=== PATIENT | female | born 1950 | race Caucasian/White ===

== ENCOUNTER 2019-07-23 13:05 | Inpatient (IN) ==
[2019-07-23] MEDS ORDERED: NS 1000 ML 1,000 ML ONE ×2 (13:34→15:27)
[2019-07-23] MEDS ORDERED: NS 1000 ML 1,000 ML IV ONE ×2 (13:47→15:27)
[2019-07-23] MEDS ORDERED: ZOFRAN INJ 4 MG VIAL IVP ONE ×2 (13:56→18:30)
--- NOTE | 2019-07-23 13:56 | DR.NAUSEAF ---
HPI Time Seen Time Seen by Provider: 07/23/19 13:56 HPI Comment HPI Comment: PATIENT IS 69YR OLD FEMALE IN ER WITH NAUSEA, VOMITING AND DIARRHEA NOTED THIS AM WHEN PATIENT WENT TO WORK. SHE IS WEAK AND HAVE NEAR SYNCOPAL FEELING. BP IS LOW IN ER. NO FEVER OR DYSURIA. DENIES BEING IN CONTACT WITH [facility] WITH SIMILAR SYMPTOMS. DENIES RECENT TRAVEL. PATIENT HAVING 7/10 NON RADIATING DIFFUSE ABDOMINAL CRAMPING. Complaints Chief Complaint Doctors Comments: GENERALIZED WEAKNESS, NAUSEA, VOMITING, DIARRHEA NOTED THIS AM.AND FEEL SHE Chief Complaint:: PT C/O BEING AT WORK THIS AM AND C/O N/V AND FEELING WEAK ,BR Reviewed Nurses Notes Reviewed: Yes Source History Provided: Patient and Family Member Mode of Arrival Mode of Arrival: Ambulatory Timing Onset of Chief Complaint: 07/23/19 Context Onset: Spontaneous Recent: None History of: Abdominal Operation (APPENDECTOMY.) Quality Quality: Food Particles Associated Signs and Symptoms Abdominal Pain Quality: Cramping Abdominal Pain Location: Diffuse Symptoms: Abdominal Pain and Diarrhea PMH PMH Past Medical History: Yes Past Medical History: Depression Past Surgical History: No Surgical History: Appendectomy and Tonsillectomy Family History History of Family Medical Conditions: No Social History Does patient currently use any type of tobacco product: No Have you used tobacco products in the last 12 months: No Type of Tobacco Use: None Does any household member use tobacco: No Alcohol Use: None Do you use any recreational Drugs:: No Lives With: Family Lives Where: Home Travel Risk Coronavirus risk:travel/contact w/high risk person: No Has patient experienced Coronavirus symptoms: No Infectious screening In the last 2 months have you had wt loss of >10#?: NO Have you had fever, night sweats or hemotysis?: No Have you traveled outside the country in the last 6 months?: No Isolation: Standard ROS Review of Systems Constitutional: See HPI, Weakness and Fatigue; negative Fever Eyes: No Symptoms Reported and See HPI; negative Blurred Vision and Diplopia ENTM: No Symptoms Reported and See HPI; negative Ear Pain, Nose Congestion and Throat Pain Respiratoy: No Symptoms Reported and See HPI; negative Productive Cough, Moist Cough, Short of Breath and Wheezing Cardiovascular: No Symptoms Reported and See HPI; negative Chest Pain and Edema Gastrointestinal/Abdominal: Abdominal Pain, Diarrhea, Nausea and Vomiting Genitourinary: No Symptoms Reported and See HPI; negative Frequency Neurological: See HPI, Headache, Weakness and Dizziness Musculoskeletal: No Symptoms Reported, See HPI and Muscle Pain; negative Back Pain Integumentary: No Symptoms Reported and See HPI; negative Change in Color, Rash and Juandice Hematologic/Lymphatic: No Symptoms Reported and See HPI; negative Easy Bruising and Swollen Glands Endocrine: See HPI and Increased Thirst; negative Increased Urine Psychiatric: No Symptoms Reported and See HPI All Other Systems: Reviewed and Negative PE Vital Signs Vitals: Temperature 97.2 F Pulse Rate 98 Respiratory Rate 18 Blood Pressure 96/55 O2 Sat by Pulse Oximetry 91 General Limitations: No Limitations General Appearance: Alert and In No Apparent Distress Head Head Exam: Normal Inspection and Atraumatic Eyes Eye exam: Normal Appearance and PERRL; negative Scleral Icterus and Conjunctival Injection ENT ENT Exam: Normal Exam Neck Neck Exam: Normal Inspection and Trachea Midline; negative Tenderness and Lymphadenopathy Chest Chest Inspection: Normal Inspection and Symmetric Chest Wall Rise; negative Tenderness Respiratory Respiratory Exam: Normal Lung Sounds Bilat; negative Accessory Muscle Use, Chest Wall Tenderness and Respiratory Distress Respiratory Exam: Bilateral: Rhonchi and Lower: Rhonchi Cardiovascular Cardiovascular Exam: Regular Rate, Normal Rhythm and Normal Heart Sounds; neg ative Systolic Murmur and Diastolic Murmur Abdominal Exam Abdominal Exam: Normal Bowel Sounds, Soft and Tenderness Abdominal Tenderness: Diffuse and Moderate Rectal Rectal Exam: Deferred External Exam: Female: Deferred : Speculum Exam (Female): Deferred : Bimanual Exam (female): Deferred Extremities Extremities Exam: Normal Inspection and Normal Capillary Refill; negative Tenderness, Edema and Calf Tenderness Back Back Exam: Normal Inspection; negative (R) CVA Tenderness and (L) CVA Tenderness Neurologic Neurological Exam: Alert, Oriented X3 and CN II-XII Intact; negative Motor Sensory Deficit Psychiatric Psychiatric Exam: Normal Affect and Normal Mood Skin Skin Exam: Dry MDM Additional Information Obtained Additional Information Obtained From: Family Differential Diagnosis Differential Diagnosis: Considerations may Include:: Bowel Obstruction, Cholecystitis, Gastroenteritis, Pancreatitis, PUD, Urinary Tract Infection and Urolithiasis COURSE Treatment Treatment: SEE ORDERS. NS 1L IV BOLUS TIMES 2, NS 100CC/HR. CIPRO 200MG IVPB. DEMOROL 12.5MG IV AND ZOFRAN 4MG IV. Reevaluation 1st: Improved (BP STILL LOW. REPEAT NS 1L IV BOLUS.) 2nd: Improved Consultation Consultation Comments: DISCUSSED PATIENT WITH DR. COBOS. HE WILL ADMIT PATIENT. Education/Counseling Education/Counseling: Patient and Family Educated On: Diagnosis ROR Labs Reviewed Laboratory Results Reviewed?: Yes Result Diagrams: 07/23/19 13:40 07/23/19 13:40 Laboratory: 07/23/19 15:40 Stool - Final WBC 15.2 X10^3/uL (3.6-10.0) H 07/23/19 13:40 RBC 5.02 X10^6/uL (3.5-5.4) 07/23/19 13:40 Hgb 14.6 g/dL (12.0-16.0) 07/23/19 13:40 Hct 44.0 % (36.0-47.0) 07/23/19 13:40 MCV 87.5 fL (80.0-100.0) 07/23/19 13:40 MCH 29.0 pg (27.0-34.0) 07/23/19 13:40 MCHC 33.1 g/dL (33.0-35.0) 07/23/19 13:40 RDW 13.2 % (11.6-16.5) 07/23/19 13:40 Plt Count 329 X10^3/uL (150.0-450.0) 07/23/19 13:40 MPV 8.4 fL (7.4-11.0) 07/23/19 13:40 Neut % (Auto) 89.5 % (42.0-75.0) H 07/23/19 13:40 Lymph % (Auto) 5.1 % (21.0-51.0) L 07/23/19 13:40 [place] % (Auto) 4.7 % (0.0-13.0) 07/23/19 13:40 Eos % (Auto) 0.3 % (0.9-2.9) L 07/23/19 13:40 Baso % (Auto) 0.4 % (0.2-1.0) 07/23/19 13:40 Neut # (Auto) 13.6 x10^3/uL (2.2-4.8) H 07/23/19 13:40 Lymph # (Auto) 0.8 X10^3/uL (1.3-2.9) L 07/23/19 13:40 [place] # (Auto) 0.7 x10^3/uL (0.3-0.8) 07/23/19 13:40 Eos # (Auto) 0.0 x10^3/uL (0.0-0.2) 07/23/19 13:40 Baso # (Auto) 0.1 X10^3/uL (0.0-0.1) 07/23/19 13:40 Absolute Nucleated RBC 0.0 /100WBC 07/23/19 13:40 Sodium 142 mmol/L (136-145) 07/23/19 13:40 Corrected Sodium 143 mmol/L (136-145) 07/23/19 13:40 Potassium 4.6 mmol/L (3.5-5.1) 07/23/19 13:40 Chloride 106 mmol/L (98-107) 07/23/19 13:40 Carbon Dioxide 26.7 mmol/L (21-32) 07/23/19 13:40 BUN 33 mg/dL (7-18) H 07/23/19 13:40 Creatinine 1.86 mg/dL (0.55-1.02) H 07/23/19 13:40 Est GFR (MDRD) Af Amer 34 (>60) L 07/23/19 13:40 Est GFR (MDRD) Non-Af 28 (>60) L 07/23/19 13:40 Glucose 125 mg/dL (65-99) H 07/23/19 13:40 Calcium 9.9 mg/dL (8.5-10.1) 07/23/19 13:40 Corrected Calcium TNP 07/23/19 13:40 Total Bilirubin 0.50 mg/dL (0.2-1.0) 07/23/19 13:40 AST 30 Units/L (15-37) 07/23/19 13:40 ALT 27 Units/L (12-78) 07/23/19 13:40 Alkaline Phosphatase 94 Units/L (46-116) 07/23/19 13:40 Total Protein 8.3 g/dL (6.4-8.2) H 07/23/19 13:40 Albumin 3.9 g/dL (3.4-5.0) 07/23/19 13:40 Globulin 4.4 g/dL (2.5-4.5) 07/23/19 13:40 Albumin/Globulin Ratio 0.9 Ratio (1.1-2.1) L 07/23/19 13:40 Amylase 34 Units/L (25-115) 07/23/19 13:40 Lipase 149 Units/L (73-393) 07/23/19 13:40 Specimen Type Clean catch urine 07/23/19 16:06 Urine Color Yellow (YELLOW) 07/23/19 16:06 Urine Appearance Hazy (CLEAR) 07/23/19 16:06 Urine pH 5.0 (5.0 - 8.0) 07/23/19 16:06 Ur Specific [place] 1.015 (1.000-1.030) 07/23/19 16:06 Urine Protein 1+ (NEGATIVE) 07/23/19 16:06 Urine Glucose (UA) Negative (NEGATIVE) 07/23/19 16:06 Urine Ketones Negative (NEGATIVE) 07/23/19 16:06 Urine Occult Blood 1+ (NEGATIVE) 07/23/19 16:06 Urine Nitrite Negative (NEGATIVE) 07/23/19 16:06 Urine Bilirubin Negative (NEGATIVE) 07/23/19 16:06 Urine Urobilinogen Normal (NORMAL) 07/23/19 16:06 Ur Leukocyte Esterase 2+ (NEGATIVE) 07/23/19 16:06 Urine RBC 3-5 /HPF (0-3) A 07/23/19 16:06 Urine WBC 3-5 /HPF (0-5) 07/23/19 16:06 Ur Squamous Epith Cells Few /HPF (NEGATIVE) 07/23/19 16:06 Urine Bacteria Trace /HPF (NEGATIVE) 07/23/19 16:06 Urine Mucus Few /HPF (NEGATIVE) 07/23/19 16:06 Ur Culture Indicated? No/not indicated 07/23/19 16:06 Stool Description 10g mucoid 07/23/19 15:40 Stool Description 10g mucoid 07/23/19 15:40 Stl Occult Blood (IFOB) Positive (NEGATIVE) A 07/23/19 15:40 Stool for White Cells Positive (NEGATIVE) A 07/23/19 15:40 Stl C. diff Tox B Gene Negative (NEGATIVE) 07/23/19 15:40 Stl C. diff 027-NAP1-BI Negative (NEGATIVE) 07/23/19 15:40 Stool H. pylori Ag Positive (NEGATIVE) A 07/23/19 15:40 Cryptosporid parvum Ag Negative (NEGATIVE) 07/23/19 15:40 Giardia lamblia Ag Negative (NEGATIVE) 07/23/19 15:40 XRAY XRAY Interpreted by: Radiologist (REPORT NOTED AND DISCUSSED WITH PATIENT.) Opioid Opioid Risk Tool Age ([place] box if 16-45): No History of Preadolescent Sexual Abuse: No Total: 0 Total Score Risk Category: Low Risk Copyright: Domenico LLOYD predicting aberrant behaviors Diagnosis Discharge Problem: Generalized weakness, Gastroenteritis, Colitis, Campylobacter enteritis, H. pylori infection Hypotension Qualifiers: Hypotension type: unspecified hypotension type Qualified Code(s): I95.9 - Hypotension, unspecified Abdominal pain Qualifiers: Abdominal location: generalized Qualified Code(s): R10.84 - Generalized abdominal pain
[2019-07-23] MEDS ORDERED: ZOFRAN INJ 4 MG VIAL ONE ×2 (13:58→18:30)
[2019-07-23 14:09] LABS: BASOPHILS # (AUTO) 0.1 X10^3/uL (0.0-0.1); BASOPHILS % (AUTO) 0.4 % (0.2-1.0); EOSINOPHILS % (AUTO) 0.3 % (0.9-2.9); HEMOGLOBIN 14.6 g/dL (12.0-16.0); LYMPHOCYTES # (AUTO) 0.8 X10^3/uL (1.3-2.9); LYMPHOCYTES % (AUTO) 5.1 % (21.0-51.0); MEAN CORPUSCULAR HGB CONC 33.1 g/dL (33.0-35.0); MEAN CORPUSCULAR VOLUME 87.5 fL (80.0-100.0); MEAN PLATELET VOLUME 8.4 fL (7.4-11.0); MONOCYTES # (AUTO) 0.7 x10^3/uL (0.3-0.8); MONOCYTES % (AUTO) 4.7 % (0.0-13.0); NEUTROPHILS # (AUTO) 13.6 x10^3/uL (2.2-4.8); NEUTROPHILS % (AUTO) 89.5 % (42.0-75.0); PLATELET COUNT 329 X10^3/uL (150.0-450.0); RED BLOOD COUNT 5.02 X10^6/uL (3.5-5.4); RED CELL DISTRIBUTION WIDTH 13.2 % (11.6-16.5); WHITE BLOOD COUNT 15.2 X10^3/uL (3.6-10.0)
[2019-07-23 14:18] LABS: ALANINE AMINOTRANSFERASE 27 Units/L (12-78); ALBUMIN 3.9 g/dL (3.4-5.0); ALKALINE PHOSPHATASE 94 Units/L (46-116); AMYLASE 34 Units/L (25-115); ASPARTATE AMINO TRANSFERASE 30 Units/L (15-37); BLOOD UREA NITROGEN 33 mg/dL (7-18); CALCIUM 9.9 mg/dL (8.5-10.1); CARBON DIOXIDE 26.7 mmol/L (21-32); CHLORIDE 106 mmol/L (98-107); COR NA(FOR HYPERGLY) 143 mmol/L (136-145); CREATININE 1.86 mg/dL (0.55-1.02); LIPASE 149 Units/L (73-393); SODIUM 142 mmol/L (136-145); TOTAL PROTEIN 8.3 g/dL (6.4-8.2); eGFR NON BLACK RACES 28 (>60)
[2019-07-23] MEDS ORDERED: TYLENOL 325 MG TAB PO ONE ×2 (16:12)
[2019-07-23 16:33] LABS: BILIRUBIN,URINE NEGATIVE (NEGATIVE); BLOOD/HEMOGLOBIN,URINE 1+ (NEGATIVE); GLUCOSE, URINE NEGATIVE (NEGATIVE); KETONES,URINE NEGATIVE (NEGATIVE); LEUKOCYTE ESTERASE ,URINE 2+ (NEGATIVE); NITRITES,URINE NEGATIVE (NEGATIVE); PROTEIN,URINE 1+ (NEGATIVE); UROBILINOGEN,URINE NORMAL (NORMAL)
[2019-07-23 16:39] LABS: APPEARANCE,URINE HAZY (CLEAR); BACTERIA,URINE TRACE /HPF (NEGATIVE); COLOR,URINE YELLOW (YELLOW); SQUAMOUS EPITHELIAL CELL,UR FEW /HPF (NEGATIVE)
[2019-07-23 16:40] LABS: MUCUS,URINE FEW /HPF (NEGATIVE)
[2019-07-23 17:15] LABS: CRYPTOSPORIDIUM PARVUM ANTIGEN NEGATIVE (NEGATIVE); GIARDIA LAMBLIA ANTIGEN NEGATIVE (NEGATIVE)
[2019-07-23] MEDS ORDERED: DEMEROL INJ IVP ONE (18:29)
[2019-07-23] MEDS ORDERED: DEMEROL INJ ONE (18:31)
--- NOTE | 2019-07-23 18:46 | CT ---
HISTORYABD PAIN, N/V/DSTUDYABDOMEN/PELVIS W/O CONCOMPARISONNoneTECHNIQUEMultiple axial images of the abdomen and pelvis were obtained from the lung bases to the pubic symphysis without the administration of IV contrast. Dose reduction techniques including Automated Exposure Control (AEC) and adjustment of mA and kV were utilized.FINDINGSSubsegmental atelectasis and/or scarring are seen within the visualized lungs. Partially visualized bilateral breast implants are noted. The liver, spleen, pancreas, adrenals, and kidneys are grossly unremarkable in appearance given the limitations of this noncontrast exam. No CT evidence of hydronephrosis is identified. The appendix is not well defined. No significant inflammatory changes are appreciated within the right lower quadrant. Evaluation of the stomach, small bowel, and colon is limited without oral contrast. A small hiatal hernia is noted. The urinary bladder is grossly unremarkable. Degenerative changes are seen within the visualized spine.IMPRESSIONNo definite CT evidence of acute disease within the abdomen pelvis is appreciated.Electronically signed by: GEM MACIAS (Jul 23, 2019 18:44:27)
[2019-07-23] MEDS ORDERED: CIPRO IV 400 MG PREMIX* 400 MG/200 ML IV.SOLN. IV ONE ×2 (18:53→18:54)
[2019-07-23] MEDS ORDERED: PEPCID 20 MG IV PREMIX* 20 MG/50 ML BAG IV PRN (19:37)
[2019-07-23] MEDS ORDERED: ATARAX TAB 25 MG PO PRN (19:37)
[2019-07-23] MEDS: CIPRO IV 200 MG PREMIX* 200 MG/100 ML BAG IV SCH (20:19)
[2019-07-23] MEDS ORDERED: LEXAPRO ONE (20:31)
[2019-07-23] MEDS: NS 1000 ML 1,000 ML IV SCH (20:44)
[2019-07-23] MEDS: FLAGYL IV PREMIX 500 MG BAG 500 MG/100 ML BAG IV SCH (20:45)
[2019-07-23] MEDS: LEXAPRO PO SCH (20:45)
[2019-07-23] MEDS: REQUIP PO SCH (20:45)
[2019-07-23] MEDS: ZOFRAN INJ 4 MG VIAL IVP PRN (21:14)
[2019-07-23 21:37] VITALS: BMI 24.0
[2019-07-23] MEDS ORDERED: BUTT CREAM (COMPOUND) TOP PRN (21:53)
[2019-07-24] MEDS: DEMEROL INJ IVP PRN ×3 (00:11→17:20)
[2019-07-24] MEDS: FLAGYL IV PREMIX 500 MG BAG 500 MG/100 ML BAG IV SCH ×4 (02:10→20:57)
[2019-07-24 06:04] LABS: BASOPHILS % (AUTO) 0.1 % (0.2-1.0); EOSINOPHILS # (AUTO) 0.2 x10^3/uL (0.0-0.2); EOSINOPHILS % (AUTO) 2.7 % (0.9-2.9); HEMATOCRIT 34.9 % (36.0-47.0); HEMOGLOBIN 11.6 g/dL (12.0-16.0); LYMPHOCYTES % (AUTO) 15.6 % (21.0-51.0); MEAN CORPUSCULAR HEMOGLOBIN 29.3 pg (27.0-34.0); MEAN CORPUSCULAR HGB CONC 33.2 g/dL (33.0-35.0); MEAN CORPUSCULAR VOLUME 88.3 fL (80.0-100.0); MEAN PLATELET VOLUME 8.1 fL (7.4-11.0); MONOCYTES # (AUTO) 0.5 x10^3/uL (0.3-0.8); MONOCYTES % (AUTO) 8.3 % (0.0-13.0); NEUTROPHILS # (AUTO) 4.6 x10^3/uL (2.2-4.8); NEUTROPHILS % (AUTO) 73.3 % (42.0-75.0); PLATELET COUNT 242 X10^3/uL (150.0-450.0); RED BLOOD COUNT 3.96 X10^6/uL (3.5-5.4); RED CELL DISTRIBUTION WIDTH 13.7 % (11.6-16.5); WHITE BLOOD COUNT 6.2 X10^3/uL (3.6-10.0)
[2019-07-24] MEDS: SYNTHROID 75 mcg TAB PO SCH (06:08)
[2019-07-24 06:17] LABS: ALANINE AMINOTRANSFERASE 19 Units/L (12-78); ALBUMIN 2.7 g/dL (3.4-5.0); ALKALINE PHOSPHATASE 62 Units/L (46-116); AMYLASE 22 Units/L (25-115); ASPARTATE AMINO TRANSFERASE 18 Units/L (15-37); BLOOD UREA NITROGEN 27 mg/dL (7-18); CALCIUM 8.2 mg/dL (8.5-10.1); CARBON DIOXIDE 24.1 mmol/L (21-32); CHLORIDE 113 mmol/L (98-107); COR CA(FOR HYPOALB) 9.2 mg/dL (8.5-10.1); CREATININE 1.54 mg/dL (0.55-1.02); LIPASE 70 Units/L (73-393); SODIUM 144 mmol/L (136-145); TOTAL PROTEIN 6.1 g/dL (6.4-8.2); eGFR NON BLACK RACES 35 (>60)
[2019-07-24] MEDS: NS 1000 ML 1,000 ML IV SCH ×2 (06:26→17:19)
[2019-07-24] MEDS: PROTONIX INJ 40 MG VIAL IVP SCH ×2 (08:58→20:57)
[2019-07-24] MEDS: CIPRO IV 200 MG PREMIX* 200 MG/100 ML BAG IV SCH ×2 (08:59→22:00)
[2019-07-24] MEDS: PEPCID 20 MG IV PREMIX* 20 MG/50 ML BAG IV SCH (08:59)
[2019-07-24] MEDS ORDERED: LEVOTHYROXINE 75 MCG PO SCH (09:00)
[2019-07-24] MEDS ORDERED: PEPCID 20 MG IV PREMIX* 20 MG/50 ML BAG IV SCH (09:00)
[2019-07-24] MEDS: TYLENOL 325 MG TAB PO PRN (11:18)
[2019-07-24] MEDS ORDERED: LEXAPRO ONE (19:47)
[2019-07-24] MEDS: LEXAPRO PO SCH (20:57)
[2019-07-24] MEDS: REQUIP PO SCH (20:57)
[2019-07-24] MEDS: ZOFRAN INJ 4 MG VIAL IVP PRN (23:53)
[2019-07-25] MEDS: NS 1000 ML 1,000 ML IV SCH ×4 (01:39→21:26)
[2019-07-25] MEDS: FLAGYL IV PREMIX 500 MG BAG 500 MG/100 ML BAG IV SCH ×4 (03:39→20:40)
[2019-07-25 05:59] LABS: BASOPHILS % (AUTO) 0.4 % (0.2-1.0); EOSINOPHILS # (AUTO) 0.4 x10^3/uL (0.0-0.2); EOSINOPHILS % (AUTO) 4.8 % (0.9-2.9); HEMATOCRIT 33.6 % (36.0-47.0); HEMOGLOBIN 11.2 g/dL (12.0-16.0); LYMPHOCYTES % (AUTO) 11.7 % (21.0-51.0); MEAN CORPUSCULAR HEMOGLOBIN 29.4 pg (27.0-34.0); MEAN CORPUSCULAR HGB CONC 33.2 g/dL (33.0-35.0); MEAN CORPUSCULAR VOLUME 88.5 fL (80.0-100.0); MEAN PLATELET VOLUME 9.6 fL (7.4-11.0); MONOCYTES # (AUTO) 0.7 x10^3/uL (0.3-0.8); MONOCYTES % (AUTO) 8.8 % (0.0-13.0); NEUTROPHILS # (AUTO) 6.2 x10^3/uL (2.2-4.8); NEUTROPHILS % (AUTO) 74.3 % (42.0-75.0); PLATELET COUNT 205 X10^3/uL (150.0-450.0); RED CELL DISTRIBUTION WIDTH 13.2 % (11.6-16.5); WHITE BLOOD COUNT 8.3 X10^3/uL (3.6-10.0)
[2019-07-25 06:09] LABS: ALANINE AMINOTRANSFERASE 14 Units/L (12-78); ALBUMIN 2.6 g/dL (3.4-5.0); ALKALINE PHOSPHATASE 58 Units/L (46-116); ASPARTATE AMINO TRANSFERASE 16 Units/L (15-37); BLOOD UREA NITROGEN 15 mg/dL (7-18); CALCIUM 8.1 mg/dL (8.5-10.1); CARBON DIOXIDE 23.8 mmol/L (21-32); CHLORIDE 112 mmol/L (98-107); COR CA(FOR HYPOALB) 9.2 mg/dL (8.5-10.1); CREATININE 1.46 mg/dL (0.55-1.02); SODIUM 142 mmol/L (136-145); TOTAL PROTEIN 5.8 g/dL (6.4-8.2); eGFR NON BLACK RACES 38 (>60)
[2019-07-25 06:20] LABS: PLATELET MORPHOLOGY COMMENT NORMAL (NORMAL)
[2019-07-25] MEDS: SYNTHROID 75 mcg TAB PO SCH (07:48)
[2019-07-25] MEDS: PROTONIX INJ 40 MG VIAL IVP SCH ×2 (08:20→20:40)
[2019-07-25] MEDS: CIPRO IV 200 MG PREMIX* 200 MG/100 ML BAG IV SCH ×2 (08:35→20:40)
[2019-07-25] MEDS: PEPCID 20 MG IV PREMIX* 20 MG/50 ML BAG IV SCH (08:38)
[2019-07-25] MEDS: ZOFRAN INJ 4 MG VIAL IVP PRN ×2 (08:50→16:55)
[2019-07-25] MEDS ORDERED: LEXAPRO ONE (20:27)
[2019-07-25] MEDS: LEXAPRO PO SCH (20:40)
[2019-07-25] MEDS: REQUIP PO SCH (20:40)
[2019-07-26] MEDS: TYLENOL 325 MG TAB PO PRN ×2 (01:45→18:59)
[2019-07-26] MEDS: FLAGYL IV PREMIX 500 MG BAG 500 MG/100 ML BAG IV SCH ×4 (02:33→20:50)
[2019-07-26 06:05] LABS: BASOPHILS % (AUTO) 0.1 % (0.2-1.0); EOSINOPHILS # (AUTO) 0.4 x10^3/uL (0.0-0.2); EOSINOPHILS % (AUTO) 6.6 % (0.9-2.9); HEMATOCRIT 32.1 % (36.0-47.0); HEMOGLOBIN 10.9 g/dL (12.0-16.0); LYMPHOCYTES % (AUTO) 16.8 % (21.0-51.0); MEAN CORPUSCULAR VOLUME 88.1 fL (80.0-100.0); MEAN PLATELET VOLUME 8.5 fL (7.4-11.0); MONOCYTES # (AUTO) 0.7 x10^3/uL (0.3-0.8); MONOCYTES % (AUTO) 11.5 % (0.0-13.0); PLATELET COUNT 192 X10^3/uL (150.0-450.0); RED BLOOD COUNT 3.64 X10^6/uL (3.5-5.4); RED CELL DISTRIBUTION WIDTH 13.3 % (11.6-16.5); WHITE BLOOD COUNT 6.1 X10^3/uL (3.6-10.0)
[2019-07-26 06:19] LABS: ALANINE AMINOTRANSFERASE 17 Units/L (12-78); ALBUMIN 2.5 g/dL (3.4-5.0); ALKALINE PHOSPHATASE 63 Units/L (46-116); ASPARTATE AMINO TRANSFERASE 23 Units/L (15-37); BLOOD UREA NITROGEN 10 mg/dL (7-18); CARBON DIOXIDE 21.1 mmol/L (21-32); CHLORIDE 111 mmol/L (98-107); COR CA(FOR HYPOALB) 9.2 mg/dL (8.5-10.1); CREATININE 1.48 mg/dL (0.55-1.02); SODIUM 141 mmol/L (136-145); TOTAL PROTEIN 5.6 g/dL (6.4-8.2); eGFR NON BLACK RACES 37 (>60)
[2019-07-26] MEDS: SYNTHROID 75 mcg TAB PO SCH (07:50)
[2019-07-26] MEDS: PROTONIX INJ 40 MG VIAL IVP SCH ×2 (08:40→20:53)
[2019-07-26] MEDS: CIPRO IV 200 MG PREMIX* 200 MG/100 ML BAG IV SCH ×2 (08:50→20:49)
[2019-07-26] MEDS: NS 1000 ML 1,000 ML IV SCH ×3 (09:00→20:48)
[2019-07-26] MEDS: PEPCID 20 MG IV PREMIX* 20 MG/50 ML BAG IV SCH (09:02)
--- NOTE | 2019-07-26 10:15 | DR.H&P ---
H&P - History & Physical for Day of: H&P Date: 07/23/19 - Chief Complaint Chief Complaint: NAUSEA, VOMITING, DIARRHEA - History of Present Illness History of Present Illness: IS A 69 YEAR OLD PATIENT OF OURS WHO PRESENTED TO THE HOSPITAL WITH COMPLAINTS OF GENERALIZED WEAKNESS, NAUSEA, VOMITING, AND DIARRHEA. SYMPTOMS STARTED ON DAY PRIOR. SHE DENIES TRAVEL OR CONTACT WITH OTHERS WITH SIMILAR SYMPTOMS. ON ARRIVAL TO THE HOSPITAL, VITALS WERE 97.2-124-20-95%-116/58. LABS WERE OBTAINED. ABNORMAL LAB VALUES INCLUDED THE FOLLOWING: WBC 15.2, BUN 33, CREATININE 1.86, GLUCOSE 125, TOTAL PROTEIN 8.3. A URINALYSIS WAS OBTAINED AND REVEALED: WBC 3-5, RBC 3-5, LEUKOCYTES 2+, BACTERIA TRACE. STOOLS ARE POSITIVE FOR OCCULT BLOOD, WHITE CELLS, H.PYLORI, AND CAMPYLOBACTER. A STOOL CULTURE IS PENDING. AN ABDOMEN/PELVIS CT WAS OBTAINED AND REVEALED: No definite CT evidence of acute disease within the abdomen pelvis is appreciated. SHE WAS GIVEN CIPRO 400MG IV X 1 DOSE, ZORFAN 4MG IV X 1, DEMEROL 12.5MG IV X 1, TYLENOL 650MG PO X 1, AND A NORMAL SALINE BOLUS X 2. SHE WAS ADMITTED FOR FURTHER EVAULATION AND TREATMENT OF COLITIS, GENERALIZED WEAKNESS, AND HYPOTENSION. SHE WAS STARTED ON CIPRO 200MG IV Q12H, PEPCID IV DAILY, PROTON IX 40MG IV BID, FLAGYL 500MG IV Q6H, AND NORMLA SALINE AT 100 ML/HR. OTHERWISE, WE PLAN TO FOLLOW UP WITH AM LABS AND CONTINUE TO MONITOR. - Past Medical History Past Medical History: Depression - Past Surgical History Surgical History: Hysterectomy, Mastectomy, Other - Family History Family Medical History: Diabetes Mellitus, Cancer, [place], Coronary Artery Disease, Hypertension - Social History Does patient currently use any type of tobacco product: No Have you used tobacco products in the last 12 months: No Type of Tobacco Use: None Does any household member use tobacco: No Alcohol Use: None Drug Use: None - Medications Home Medications: codeine Allergy (Verified 07/23/19 14:06) NSAIDS (Non-Steroidal Anti-Inflamma Allergy (Verified 07/23/19 14:06) Sulfa (Sulfonamide Antibiotics) [SULFA] Allergy (Verified 07/23/19 14:06) CONTINUE taking the following medications escitalopram oxalate 10 mg PO HS 07/23/19 [History] hydroxyzine HCl 25 - 50 mg PO HS PRN 07/23/19 [History] ropinirole 4 mg PO HS 07/23/19 [History] - Review of Systems Constitutional: Weakness Eyes: No Symptoms Reported ENT: No Symptoms Reported Respiratory: No Symptoms Reported Cardiovascular: No Symptoms Reported Gastrointestinal: See HPI, Nausea, Vomiting, Abdominal Pain, Diarrhea Genitourinary: No Symptoms Reported Musculoskeletal: No Symptoms Reported Skin: No Symptoms Reported Neurological: Weakness - Physical Exam Vital Signs: Temperature 98.4 F Pulse Rate [Left Radial] 86 Pulse Rate 79 Respiratory Rate 18 Blood Pressure [Left Arm] 118/56 Blood Pressure 96/55 O2 Sat by Pulse Oximetry 94 Oriented: Normal Eyes: Normal Ear: Normal Nose: Normal Throat: Normal Respiratory: Diminished Throughout Cardiovascular: Tachycardia : Normal Auscultation: Bowel Sounds: Normal Palpation: Normal Tenderness: Diffuse, Moderate. negative: Rebound, Guarding, Rigidity Skin: Normal Musculoskeletal: Normal Psychiatric: Normal Mood Description: Calm Affect: Normal Speech Pattern: Clear - Assessment/Plan (1) Colitis Status: Acute Plan: ADMIT, CIPRO 200MG IV Q12H, PEPCID IV DAILY, PROTONIX 40MG IV BID, FLAGYL 500MG IV Q6H, AND NORMLA SALINE AT 100 ML/HR (2) Campylobacter enteritis Status: Acute (3) H. pylori infection Status: Acute (4) Hypotension Qualifiers: Hypotension type: unspecified hypotension type Qualified Code(s): I95.9 - Hypotension, unspecified Status: Acute (5) Generalized weakness Status: Acute (6) Abdominal pain Qualifiers: Abdominal location: generalized Qualified Code(s): R10.84 - Generalized abdominal pain Status: Acute - Allergies Allergies/Adverse Reactions: Allergies Allergy/AdvReac Type Severity Reaction Status Date / Time codeine Allergy Verified 07/23/19 14:06 NSAIDS (Non-Steroidal Allergy Verified 07/23/19 14:06 Anti-Inflamma Sulfa (Sulfonamide Allergy Verified 07/23/19 14:06 Antibiotics) [SULFA]
[2019-07-26] MEDS: ZOFRAN INJ 4 MG VIAL IVP PRN ×2 (10:36→21:43)
[2019-07-26] MEDS ORDERED: POTASSIUM CHLORIDE LIQ 20 MEQ UDC PO PRN (12:01)
[2019-07-26] MEDS ORDERED: POTASSIUM CHL 40 MEQ/NS 0.45% 500 ML IV PRN (12:01)
[2019-07-26] MEDS ORDERED: POTASSIUM CHL 60 MEQ/NS 0.45% 500 ML IV PRN (12:01)
[2019-07-26] MEDS ORDERED: K-RIDER 10 MEQ/NS 100 ML 10 MEQ/100 ML BAG IV PRN (12:01)
[2019-07-26] MEDS ORDERED: K-DUR TAB 20 MEQ PO PRN (12:01)
[2019-07-26] MEDS ORDERED: MICRO K EXTEN CAP 10 MEQ PO PRN (12:01)
[2019-07-26] MEDS ORDERED: KLOR-CON PO PRN (12:01)
[2019-07-26] MEDS ORDERED: KLOR-CON PO ONE (12:44)
[2019-07-26] MEDS ORDERED: MAGNESIUM SULFATE 1 GRAM/100 mL PREMIX 2 G/200 ML BAG IV ONE (12:44)
[2019-07-26] MEDS: MAGNESIUM SULFATE 1 GRAM/100 mL PREMIX 1 GM/100 ML BAG IV PRN ×2 (13:19→15:59)
[2019-07-26] MEDS ORDERED: LEXAPRO ONE (19:59)
[2019-07-26] MEDS: LEXAPRO PO SCH (20:48)
[2019-07-26] MEDS: REQUIP PO SCH (20:53)
--- NOTE | 2019-07-26 22:39 | PCM.PROG ---
Progress Note - Progress Note for Day of Date of Exam: 07/25/19 - Subjective Subjective: IS BEING TREATED FOR COLITIS, CAMPYLOBACTER, H. PYLORI, HYPOTENSION, GENERALIZED WEAKNESS, AND ABDOMINAL PAIN. TODAY, SHE IS ALERT AND ORIENTED, LYING IN BED ON MORNING ROUNDS. SHE CONTINUES WITH DIARRHEA AND ABDOMINAL PAIN TODAY. SHE ALSO REPORTS NAUSEA. ON EXAMINATION, HEART IS REGULAR IN RATE AND RHYTHM. BILATERAL LUNGS ARE NOTED WITH DIMINISHED LUNG SOUNDS THROUGHOUT. ABDOMEN IS ROUND, SOFT, AND NOTED WITH DIFFUSE TENDERNESS. HYPERACTIVE BOWEL SOUNDS ARE NOTED IN ALL QUADRANTS. HER VITALS THIS MORNING ARE: 98.8-98-20-94%-106/66. LABS WERE OBTAINED. ABNORMAL LAB VALUES INCLUDE THE FOLLOWING: HGB 11.2, HCT 33.6, CHLORIDE 112, CREATININE 1.46, GLUCOSE 110, CALCIUM 8.1, TOTAL PROTEIN 5.8, ALBUMIN 2.6. A STOOL CULTURE IS PENDING. SHE IS CURRENTLY RECEIVING CIPRO 200MG IV Q12H, PEPCID IV DAILY, PROTONIX 40MG IV BID, FLAGYL 500MG IV Q6H, AND NORMLA SALINE AT 100 ML/HR. WE WILL CONTINUE WITH CURRENT PLAN OF CARE TODAY. OTHERWISE, WE PLAN TO FOLLOW UP WITH AM LABS AND CONSTANTINO PRABHAKAR TO MONITOR. - Past Medical Family Social History Past Med/Fam/Surg Hx: No changes since H&P Allergies: Allergies codeine Allergy (Verified 07/23/19 14:06) NSAIDS (Non-Steroidal Anti-Inflamma Allergy (Verified 07/23/19 14:06) Sulfa (Sulfonamide Antibiotics) [SULFA] Allergy (Verified 07/23/19 14:06) - Review of Systems ROS: No change since H&P - Vital Signs and I&O's Vital Signs: Temperature 98.9 F Pulse Rate [Left Radial] 97 Pulse Rate 79 Respiratory Rate 20 Blood Pressure [Left Arm] 124/60 Blood Pressure 96/55 O2 Sat by Pulse Oximetry 95 Intake and Output: Intake & Output 07/24/19 07/25/19 07/26/19 07/27/19 11:59 11:59 11:59 11:59 Intake Total 1200 / 1200 2039 3186 / 3186 2028 Output Total 0 / 0 Balance 1200 / 1200 2039 3186 / 3186 2028 - Physical Exam Oriented: Normal Eyes: Normal Ear: Normal Nose: Normal Throat: Normal Respiratory: Generalized, Diminished Cardiovascular: Normal : Normal Auscultation: Bowel Sounds: Normal Palpation: Normal Tenderness: Diffuse, Moderate. negative: Rebound, Guarding, Rigidity Skin: Normal Musculoskeletal: Normal Psychiatric: Normal Mood Description: Calm Affect: Normal Speech Pattern: Clear, Appropriate - Laboratory and Diagnostics Result Diagrams: 07/26/19 05:14 07/26/19 05:14 Labs: 07/23/19 15:40 Stool Stool Culture - Final 07/23/19 15:40 Stool - Final Laboratory WBC 6.1 X10^3/uL (3.6-10.0) 07/26/19 05:14 RBC 3.64 X10^6/uL (3.5-5.4) 07/26/19 05:14 Hgb 10.9 g/dL (12.0-16.0) L 07/26/19 05:14 Hct 32.1 % (36.0-47.0) L 07/26/19 05:14 MCV 88.1 fL (80.0-100.0) 07/26/19 05:14 MCH 30.0 pg (27.0-34.0) 07/26/19 05:14 MCHC 34.0 g/dL (33.0-35.0) 07/26/19 05:14 RDW 13.3 % (11.6-16.5) 07/26/19 05:14 Plt Count 192 X10^3/uL (150.0-450.0) 07/26/19 05:14 Plt Count Comment Adequate (ADEQUATE) 07/25/19 05:30 MPV 8.5 fL (7.4-11.0) 07/26/19 05:14 Neut % (Auto) 65.0 % (42.0-75.0) 07/26/19 05:14 Lymph % (Auto) 16.8 % (21.0-51.0) L 07/26/19 05:14 [place] % (Auto) 11.5 % (0.0-13.0) 07/26/19 05:14 Eos % (Auto) 6.6 % (0.9-2.9) H 07/26/19 05:14 Baso % (Auto) 0.1 % (0.2-1.0) L 07/26/19 05:14 Neut # (Auto) 4.0 x10^3/uL (2.2-4.8) 07/26/19 05:14 Lymph # (Auto) 1.0 X10^3/uL (1.3-2.9) L 07/26/19 05:14 [place] # (Auto) 0.7 x10^3/uL (0.3-0.8) 07/26/19 05:14 Eos # (Auto) 0.4 x10^3/uL (0.0-0.2) H 07/26/19 05:14 Baso # (Auto) 0.0 X10^3/uL (0.0-0.1) 07/26/19 05:14 Absolute Nucleated RBC 0.0 /100WBC 07/26/19 05:14 Plt Morphology Comment Normal (NORMAL) 07/25/19 05:30 RBC Morphology Normal (NORMAL) 07/25/19 05:30 Sodium 141 mmol/L (136-145) 07/26/19 05:14 Corrected Sodium TNP 07/26/19 05:14 Potassium 3.6 mmol/L (3.5-5.1) 07/26/19 05:14 Chloride 111 mmol/L (98-107) H 07/26/19 05:14 Carbon Dioxide 21.1 mmol/L (21-32) 07/26/19 05:14 BUN 10 mg/dL (7-18) 07/26/19 05:14 Creatinine 1.48 mg/dL (0.55-1.02) H 07/26/19 05:14 Est GFR (MDRD) Af Amer 45 (>60) L 07/26/19 05:14 Est GFR (MDRD) Non-Af 37 (>60) L 07/26/19 05:14 Glucose 97 mg/dL (65-99) 07/26/19 05:14 Calcium 8.0 mg/dL (8.5-10.1) L 07/26/19 05:14 Corrected Calcium 9.2 mg/dL (8.5-10.1) 07/26/19 05:14 Magnesium 1.6 mg/dL (1.7-2.9) L 07/26/19 05:14 Total Bilirubin 0.30 mg/dL (0.2-1.0) 07/26/19 05:14 AST 23 Units/L (15-37) 07/26/19 05:14 ALT 17 Units/L (12-78) 07/26/19 05:14 Alkaline Phosphatase 63 Units/L (46-116) 07/26/19 05:14 Total Protein 5.6 g/dL (6.4-8.2) L 07/26/19 05:14 Albumin 2.5 g/dL (3.4-5.0) L 07/26/19 05:14 Globulin 3.1 g/dL (2.5-4.5) 07/26/19 05:14 Albumin/Globulin Ratio 0.8 Ratio (1.1-2.1) L 07/26/19 05:14 Amylase 22 Units/L (25-115) L 07/24/19 05:17 Lipase 70 Units/L (73-393) L 07/24/19 05:17 Specimen Type Clean catch urine 07/23/19 16:06 Urine Color Yellow (YELLOW) 07/23/19 16:06 Urine Appearance Hazy (CLEAR) 07/23/19 16:06 Urine pH 5.0 (5.0 - 8.0) 07/23/19 16:06 Ur Specific [place] 1.015 (1.000-1.030) 07/23/19 16:06 Urine Protein 1+ (NEGATIVE) 07/23/19 16:06 Urine Glucose (UA) Negative (NEGATIVE) 07/23/19 16:06 Urine Ketones Negative (NEGATIVE) 07/23/19 16:06 Urine Occult Blood 1+ (NEGATIVE) 07/23/19 16:06 Urine Nitrite Negative (NEGATIVE) 07/23/19 16:06 Urine Bilirubin Negative (NEGATIVE) 07/23/19 16:06 Urine Urobilinogen Normal (NORMAL) 07/23/19 16:06 Ur Leukocyte Esterase 2+ (NEGATIVE) 07/23/19 16:06 Urine RBC 3-5 /HPF (0-3) A 07/23/19 16:06 Urine WBC 3-5 /HPF (0-5) 07/23/19 16:06 Ur Squamous Epith Cells Few /HPF (NEGATIVE) 07/23/19 16:06 Urine Bacteria Trace /HPF (NEGATIVE) 07/23/19 16:06 Urine Mucus Few /HPF (NEGATIVE) 07/23/19 16:06 Ur Culture Indicated? No/not indicated 07/23/19 16:06 Stool Description 10g mucoid 07/23/19 15:40 Stool Description 10g mucoid 07/23/19 15:40 Stl Occult Blood (IFOB) Positive (NEGATIVE) A 07/23/19 15:40 Stool for White Cells Positive (NEGATIVE) A 07/23/19 15:40 Stl C. diff Tox B Gene Negative (NEGATIVE) 07/23/19 15:40 Stl C. diff 027-NAP1-BI Negative (NEGATIVE) 07/23/19 15:40 Stool H. pylori Ag Positive (NEGATIVE) A 07/23/19 15:40 Cryptosporid parvum Ag Negative (NEGATIVE) 07/23/19 15:40 Giardia lamblia Ag Negative (NEGATIVE) 07/23/19 15:40 - Plan (1) Colitis Status: Acute Plan: CIPRO 200MG IV Q12H, PEPCID IV DAILY, PROTONIX 40MG IV BID, FLAGYL 500MG IV Q6H, AND NORMAL SALINE AT 100 ML/HR (2) Campylobacter enteritis Status: Acute (3) H. pylori infection Status: Acute (4) Hypotension Status: Acute Qualifiers: Hypotension type: unspecified hypotension type Qualified Code(s): I95.9 - Hypotension, unspecified (5) Generalized weakness Status: Acute (6) Abdominal pain Status: Acute Qualifiers: Abdominal location: generalized Qualified Code(s): R10.84 - Generalized abdominal pain
[2019-07-27] MEDS ORDERED: PHENERGAN INJ 25 MG IM PRN (00:06)
[2019-07-27] MEDS ORDERED: PHENERGAN INJ 25 MG IM ONE (00:14)
[2019-07-27] MEDS: FLAGYL IV PREMIX 500 MG BAG 500 MG/100 ML BAG IV SCH ×2 (03:05→08:55)
[2019-07-27 05:30] LABS: BASOPHILS % (AUTO) 0.1 % (0.2-1.0); EOSINOPHILS # (AUTO) 0.4 x10^3/uL (0.0-0.2); EOSINOPHILS % (AUTO) 7.1 % (0.9-2.9); HEMATOCRIT 33.8 % (36.0-47.0); HEMOGLOBIN 11.5 g/dL (12.0-16.0); LYMPHOCYTES # (AUTO) 0.8 X10^3/uL (1.3-2.9); LYMPHOCYTES % (AUTO) 11.9 % (21.0-51.0); MEAN CORPUSCULAR HEMOGLOBIN 29.8 pg (27.0-34.0); MEAN CORPUSCULAR HGB CONC 33.9 g/dL (33.0-35.0); MEAN PLATELET VOLUME 8.6 fL (7.4-11.0); MONOCYTES # (AUTO) 0.7 x10^3/uL (0.3-0.8); MONOCYTES % (AUTO) 11.2 % (0.0-13.0); NEUTROPHILS # (AUTO) 4.4 x10^3/uL (2.2-4.8); NEUTROPHILS % (AUTO) 69.7 % (42.0-75.0); PLATELET COUNT 216 X10^3/uL (150.0-450.0); RED BLOOD COUNT 3.85 X10^6/uL (3.5-5.4); RED CELL DISTRIBUTION WIDTH 13.4 % (11.6-16.5); WHITE BLOOD COUNT 6.3 X10^3/uL (3.6-10.0)
[2019-07-27 05:39] LABS: ALANINE AMINOTRANSFERASE 26 Units/L (12-78); ALBUMIN 2.5 g/dL (3.4-5.0); ALKALINE PHOSPHATASE 75 Units/L (46-116); ASPARTATE AMINO TRANSFERASE 34 Units/L (15-37); BLOOD UREA NITROGEN 7 mg/dL (7-18); CARBON DIOXIDE 22.9 mmol/L (21-32); CHLORIDE 109 mmol/L (98-107); COR CA(FOR HYPOALB) 9.2 mg/dL (8.5-10.1); CREATININE 1.44 mg/dL (0.55-1.02); MAGNESIUM 1.8 mg/dL (1.7-2.9); SODIUM 140 mmol/L (136-145); TOTAL PROTEIN 5.7 g/dL (6.4-8.2); eGFR NON BLACK RACES 38 (>60)
[2019-07-27] MEDS: NS 1000 ML 1,000 ML IV SCH ×2 (06:15→06:16)
[2019-07-27] MEDS: SYNTHROID 75 mcg TAB PO SCH (06:16)
[2019-07-27] MEDS: MAGNESIUM SULFATE 1 GRAM/100 mL PREMIX 1 GM/100 ML BAG IV PRN ×2 (06:29→07:53)
[2019-07-27 08:05] VITALS: BP 129/77
[2019-07-27] MEDS: PROTONIX INJ 40 MG VIAL IVP SCH (08:55)
[2019-07-27] MEDS: TYLENOL 325 MG TAB PO PRN (08:59)
[2019-07-27] MEDS: CIPRO IV 200 MG PREMIX* 200 MG/100 ML BAG IV SCH (09:56)
--- NOTE | 2019-07-27 10:33 | PCM.PROG ---
Progress Note - Progress Note for Day of Date of Exam: 07/26/19 - Subjective Subjective: IS BEING TREATED FOR COLITIS, CAMPYLOBACTER, H. PYLORI, HYPOTENSION, GENERALIZED WEAKNESS, AND ABDOMINAL PAIN. TODAY, SHE IS ALERT AND ORIENTED, LYING IN BED ON MORNING ROUNDS. SHE CONTINUES WITH DIARRHEA AND ABDOMINAL PAIN TODAY. SHE ALSO REPORTS NAUSEA. ON EXAMINATION, HEART IS REGULAR IN RATE AND RHYTHM. BILATERAL LUNGS ARE NOTED WITH DIMINISHED LUNG SOUNDS THROUGHOUT. ABDOMEN IS ROUND, SOFT, AND NOTED WITH DIFFUSE TENDERNESS. HYPERACTIVE BOWEL SOUNDS ARE NOTED IN ALL QUADRANTS. HER VITALS THIS MORNING ARE: 98.4-86-18-94%-118/56. LABS WERE OBTAINED. ABNORMAL LAB VALUES INCLUDE THE FOLLOWING: HGB 10.9, HCT 32.1, CHLORIDE 111, CREATININE 1.48, CALCIUM 8.0, MAGNESIUM 1.6, TOTAL PROTEIN 5.6, ALBUMIN 2.5. A STOOL CULTURE IS PENDING. SHE IS CURRENTLY RECEIVING CIPRO 200MG IV Q12H, PEPCID IV DAILY, PROTONIX 40MG IV BID, FLAGYL 500MG IV Q6H, AND NORMLA SALINE AT 100 ML/HR. WE WILL CONTINUE WITH CURRENT PLAN OF CARE TODAY. OTHERWISE, WE PLAN TO FOLLOW UP WITH [facility] AND Nai HARRIS TO MONITOR. - Past Medical Family Social History Past Med/Fam/Surg Hx: No changes since H&P Allergies: Allergies codeine Allergy (Verified 07/23/19 14:06) NSAIDS (Non-Steroidal Anti-Inflamma Allergy (Verified 07/23/19 14:06) Sulfa (Sulfonamide Antibiotics) [SULFA] Allergy (Verified 07/23/19 14:06) - Review of Systems ROS: No change since H&P - Vital Signs and I&O's Vital Signs: Temperature 99.9 F Pulse Rate [Left Radial] 104 Pulse Rate 79 Respiratory Rate 20 Blood Pressure [Left Arm] 129/77 Blood Pressure 96/55 O2 Sat by Pulse Oximetry 94 Intake and Output: Intake & Output 07/24/19 07/25/19 07/26/19 07/27/19 11:59 11:59 11:59 11:59 Intake Total 1200 / 1200 2039 3186 / 3186 4209 / 4209 Output Total 0 / 0 Balance 1200 / 1200 20390 3186 / 3186 4209 / 4209 - Physical Exam Oriented: Normal Eyes: Normal Ear: Normal Nose: Normal Throat: Normal Respiratory: Generalized, Diminished Cardiovascular: Normal : Normal Auscultation: Bowel Sounds: Normal Palpation: Normal Tenderness: Diffuse, Moderate. negative: Rebound, Guarding, Rigidity Skin: Normal Musculoskeletal: Normal Psychiatric: Normal Mood Description: Calm Affect: Normal Speech Pattern: Clear, Appropriate - Laboratory and Diagnostics Result Diagrams: 07/27/19 04:39 07/27/19 04:39 Labs: 07/23/19 15:40 Stool Stool Culture - Final 07/23/19 15:40 Stool - Final Laboratory WBC 6.3 X10^3/uL (3.6-10.0) 07/27/19 04:39 RBC 3.85 X10^6/uL (3.5-5.4) 07/27/19 04:39 Hgb 11.5 g/dL (12.0-16.0) L 07/27/19 04:39 Hct 33.8 % (36.0-47.0) L 07/27/19 04:39 MCV 88.0 fL (80.0-100.0) 07/27/19 04:39 MCH 29.8 pg (27.0-34.0) 07/27/19 04:39 MCHC 33.9 g/dL (33.0-35.0) 07/27/19 04:39 RDW 13.4 % (11.6-16.5) 07/27/19 04:39 Plt Count 216 X10^3/uL (150.0-450.0) 07/27/19 04:39 Plt Count Comment Adequate (ADEQUATE) 07/25/19 05:30 MPV 8.6 fL (7.4-11.0) 07/27/19 04:39 Neut % (Auto) 69.7 % (42.0-75.0) 07/27/19 04:39 Lymph % (Auto) 11.9 % (21.0-51.0) L 07/27/19 04:39 [place] % (Auto) 11.2 % (0.0-13.0) 07/27/19 04:39 Eos % (Auto) 7.1 % (0.9-2.9) H 07/27/19 04:39 Baso % (Auto) 0.1 % (0.2-1.0) L 07/27/19 04:39 Neut # (Auto) 4.4 x10^3/uL (2.2-4.8) 07/27/19 04:39 Lymph # (Auto) 0.8 X10^3/uL (1.3-2.9) L 07/27/19 04:39 [place] # (Auto) 0.7 x10^3/uL (0.3-0.8) 07/27/19 04:39 Eos # (Auto) 0.4 x10^3/uL (0.0-0.2) H 07/27/19 04:39 Baso # (Auto) 0.0 X10^3/uL (0.0-0.1) 07/27/19 04:39 Absolute Nucleated RBC 0.1 /100WBC 07/27/19 04:39 Plt Morphology Comment Normal (NORMAL) 07/25/19 05:30 RBC Morphology Normal (NORMAL) 07/25/19 05:30 Sodium 140 mmol/L (136-145) 07/27/19 04:39 Corrected Sodium TNP 07/27/19 04:39 Potassium 3.9 mmol/L (3.5-5.1) 07/27/19 04:39 Chloride 109 mmol/L (98-107) H 07/27/19 04:39 Carbon Dioxide 22.9 mmol/L (21-32) 07/27/19 04:39 BUN 7 mg/dL (7-18) 07/27/19 04:39 Creatinine 1.44 mg/dL (0.55-1.02) H 07/27/19 04:39 Est GFR (MDRD) Af Amer 46 (>60) L 07/27/19 04:39 Est GFR (MDRD) Non-Af 38 (>60) L 07/27/19 04:39 Glucose 110 mg/dL (65-99) H 07/27/19 04:39 Calcium 8.0 mg/dL (8.5-10.1) L 07/27/19 04:39 Corrected Calcium 9.2 mg/dL (8.5-10.1) 07/27/19 04:39 Magnesium 1.8 mg/dL (1.7-2.9) 07/27/19 04:39 Total Bilirubin 0.30 mg/dL (0.2-1.0) 07/27/19 04:39 AST 34 Units/L (15-37) 07/27/19 04:39 ALT 26 Units/L (12-78) 07/27/19 04:39 Alkaline Phosphatase 75 Units/L (46-116) 07/27/19 04:39 Total Protein 5.7 g/dL (6.4-8.2) L 07/27/19 04:39 Albumin 2.5 g/dL (3.4-5.0) L 07/27/19 04:39 Globulin 3.2 g/dL (2.5-4.5) 07/27/19 04:39 Albumin/Globulin Ratio 0.8 Ratio (1.1-2.1) L 07/27/19 04:39 Amylase 22 Units/L (25-115) L 07/24/19 05:17 Lipase 70 Units/L (73-393) L 07/24/19 05:17 Specimen Type Clean catch urine 07/23/19 16:06 Urine Color Yellow (YELLOW) 07/23/19 16:06 Urine Appearance Hazy (CLEAR) 07/23/19 16:06 Urine pH 5.0 (5.0 - 8.0) 07/23/19 16:06 Ur Specific [place] 1.015 (1.000-1.030) 07/23/19 16:06 Urine Protein 1+ (NEGATIVE) 07/23/19 16:06 Urine Glucose (UA) Negative (NEGATIVE) 07/23/19 16:06 Urine Ketones Negative (NEGATIVE) 07/23/19 16:06 Urine Occult Blood 1+ (NEGATIVE) 07/23/19 16:06 Urine Nitrite Negative (NEGATIVE) 07/23/19 16:06 Urine Bilirubin Negative (NEGATIVE) 07/23/19 16:06 Urine Urobilinogen Normal (NORMAL) 07/23/19 16:06 Ur Leukocyte Esterase 2+ (NEGATIVE) 07/23/19 16:06 Urine RBC 3-5 /HPF (0-3) A 07/23/19 16:06 Urine WBC 3-5 /HPF (0-5) 07/23/19 16:06 Ur Squamous Epith Cells Few /HPF (NEGATIVE) 07/23/19 16:06 Urine Bacteria Trace /HPF (NEGATIVE) 07/23/19 16:06 Urine Mucus Few /HPF (NEGATIVE) 07/23/19 16:06 Ur Culture Indicated? No/not indicated 07/23/19 16:06 Stool Description 10g mucoid 07/23/19 15:40 Stool Description 10g mucoid 07/23/19 15:40 Stl Occult Blood (IFOB) Positive (NEGATIVE) A 07/23/19 15:40 Stool for White Cells Positive (NEGATIVE) A 07/23/19 15:40 Stl C. diff Tox B Gene Negative (NEGATIVE) 07/23/19 15:40 Stl C. diff [id number] Negative (NEGATIVE) 07/23/19 15:40 Stool H. pylori Ag Positive (NEGATIVE) A 07/23/19 15:40 Cryptosporid parvum Ag Negative (NEGATIVE) 07/23/19 15:40 Giardia lamblia Ag Negative (NEGATIVE) 07/23/19 15:40 - Plan (1) Colitis Status: Acute Plan: CIPRO 200MG IV Q12H, PEPCID IV DAILY, PROTONIX 40MG IV BID, FLAGYL 500MG IV Q6H, AND NORMAL SALINE AT 100 ML/HR (2) Campylobacter enteritis Status: Acute (3) H. pylori infection Status: Acute (4) Hypotension Status: Acute Qualifiers: Hypotension type: unspecified hypotension type Qualified Code(s): I95.9 - Hypotension, unspecified (5) Generalized weakness Status: Acute (6) Abdominal pain Status: Acute Qualifiers: Abdominal location: generalized Qualified Code(s): R10.84 - Generalized abdominal pain
[2019-07-27] MEDS: PEPCID 20 MG IV PREMIX* 20 MG/50 ML BAG IV SCH (10:56)
== END 2019-07-27 12:10 | disposition home or self-care (01) | DRG 373 ==
LOC: ER 13:10 → MED/SURG 18:39
PROVIDERS: ADMIT Internal Medicine; ATTEND Internal Medicine
DX: R55 Syncope and collapse; I95.89 Other hypotension; B96.81 Helicobacter pylori [H. pylori] as the cause of diseases classified elsewhere; A04.5 Campylobacter enteritis; R53.1 Weakness; R26.89 Other abnormalities of gait and mobility; R10.84 Generalized abdominal pain
CPT/HCPCS: 36415; 74176; 80053; 81001; 82150; 82270; 83630; 83690; 83735; 85025; 87045; 87328; 87329; 87338; 87427; 87449; 87493; 87899; 96365; 96367; 96374; 96375; 97161; 97165; 99284; A4222; C9113; J0744; J2175; J2405; J2550; J3475; J3490; J7030; S0028; S0030